=== PATIENT | male | born 1985 | race Caucasian/White ===

== ENCOUNTER → 2017-07-15 | Outpatient (CLI) | payer OTHER ==
--- NOTE | 2017-07-15 11:58 | DIAGNOSTIC IMAGING REPORT ---
CERVICAL WITHOUT CONTRAST HISTORY: Pain. Neuropathy. RT CERVICAL RADICULOPATHY TECHNIQUE: Multiplanar multisequence MRI of the cervical spine was performed without the use of contrast. COMPARISON STUDY: None. FINDINGS: Normal signal characteristics the vertebral bodies. Mild degenerative disc change C5-C6 and C6-C7. C2-C3: No significant central canal or neural foraminal narrowing. C3-C4: No significant central canal or neural foraminal narrowing. C4-C5: No significant central canal or neural foraminal narrowing. C5-C6: Broad-based bulging disc with no significant impact upon the cervical cord. Mild narrowing right neuroforamina. C6-C7: Mild right posterior disc herniation with minimal impact anterior cervical cord. Mild narrowing of the right and to lesser extent left neuroforamina. C7-T1: No significant central canal or neural foraminal narrowing. IMPRESSION: 1. Mild right posterior disc herniation C6-C7 with minimal impact anterior cervical cord. 2. Mild narrowing of the right and to lesser extent left neuroforamina. 3. Broad-based bulging disc C5-C6 with no impact upon the cervical cord. Mild narrowing right neuroforamina. 4. Study is otherwise negative. The above report was generated using voice recognition software. It may contain grammatical, syntax or spelling errors. Electronically signed by: Enio Olmedo M.D. 07/15/2017 11:57 AM Dictated Date/Time: 07/15/2017 11:47 AM
== END | disposition home or self-care (01) ==
LOC: C.MRI 10:51
PROVIDERS: ATTEND Internal Medicine
DX: M50.122 Cervical disc disorder at C5-C6 level with radiculopathy (principal)